=== PATIENT | female | born 1990 | race Two or more races ===

== ENCOUNTER 2018-09-29 17:32 | Emergency (ER) | payer SELFPAY ==
[~2018-09-29] VITALS: Ht 165.1 cm; Wt 63.5 kg
[2018-09-29 17:32] VITALS: BP 128/72
--- NOTE | 2018-09-29 17:32 | NUR ---
ED Nurse Note: Patient PATSY RA #[address] d/t ETOH. Pt denies pain at this time. Pt is A&O x3, V/S stable with no s/s of acute distress noted at this time. Blood and urine sent down to the lab. ERMD at bedside evaluating the pt. Will continue to monitor.
--- NOTE | 2018-09-29 17:43 | Emergency Room Report ---
History of Present Illness General Chief Complaint: Alcohol Intoxication Source: Patient Present Illness HPI Patient was brought in by EMS. Apparently she was acting bizarrely. She was somewhat lethargic and EMS thought the she had been drinking alcohol or ingesting drugs. When asked if she has pain she says that she does. She states that her brain hurts. When asked if she has suicidal ideation (intent to harm her self) she says that she considers taking an overdose. She states she does not have any medications to take. She does admit to depression and anxiety. She is not sure what medication she takes. She does not believe she is . She denies any fevers or chills. She denies nausea, vomiting, diarrhea and dysuria. There is no recent head trauma. She does not admit to alcohol or drugs at this time. She says she just wants to sleep and has not eaten and is hungry and wants to eat. Allergies: Coded Allergies: No Known Allergies (Unverified , 09/29/18) Patient History Past Medical History: see triage record Social History: Reports: alcohol use, drug use Social History Narrative homeless Last Menstrual Period: Unknown Now: No Reviewed Nursing Documentation: PMH: Agreed; PSxH: Agreed Nursing Documentation-PMH Past Medical History: No Stated History Review of Systems All Other Systems: negative except mentioned in HPI Physical Exam Vital Signs Date Time Temp Pulse Resp B/P (MAP) Pulse Ox O2 Delivery O2 Flow Rate FiO2 09/29/18 17:27 98.4 86 15 98 Room Air 09/29/18 17:32 128/72 Sp02 EP Interpretation: reviewed, normal General Appearance: no apparent distress, lethargic, other - Disheveled Head: normocephalic Eyes: bilateral eye PERRL, bilateral eye EOMI, bilateral eye Scleral Injection ENT: moist mucus membranes Neck: supple Respiratory: lungs clear, normal breath sounds Cardiovascular #1: regular rate, rhythm Cardiovascular #2: 2+ radial (R) Gastrointestinal: normal inspection, normal bowel sounds, non tender, no mass, non-distended Genitourinary: no CVA tenderness Musculoskeletal: back normal, normal range of motion Neurologic: alert, oriented - X2 Psychiatric: depressed affect, anxious Suicide Risk Assessment: Suicidal Ideation: Yes Had intent to initiate attempt: No Pt's plan for suicide attempt: Yes Has means to complete attempt: No Skin: warm/dry, other - Disheveled and sunburn Medical Decision Making Diagnostic Impression: Primary Impression: Psychosis Qualified Codes: F29 - Unspecified psychosis not due to a substance or known physiological condition Additional Impressions: Suicidal ideation Lethargy Leukocytosis Qualified Codes: D72.828 - Other elevated white blood cell count ER Course Patient presents with suicidal ideation and substance abuse. Differential includes substance intoxication, alcohol intoxication, electrolyte imbalance, exacerbation of underlying psychiatric illness amongst others. She'll be evaluated with EKG and labs. The patient will receive IV hydration and Ativan. She has a nonfocal neurologic exam and although she is lethargic CT at this time is not indicated. Based on repeated exams this may be considered. EKG without injury. Labs with leukocytosis. CMP and CPK unremarkable. Tox screen negative. Blood alcohol negative. She was resting with occasional bouts of anxiety before Ativan was administered. Patient requires repeat evaluation. With some suicidal ideation, consider PET eval when medically clear. Patient signed out to Dr. Baumann. Laboratory Tests Test 09/29/18 18:05 09/29/18 18:20 White Blood Count 16.3 K/UL (4.8-10.8) H Red Blood Count 4.31 M/UL (4.20-5.40) Hemoglobin 13.4 G/DL (12.0-16.0) Hematocrit 39.0 % (37.0-47.0) Mean Corpuscular Volume 90 FL (80-99) Mean Corpuscular Hemoglobin 31.1 PG (27.0-31.0) H Mean Corpuscular Hemoglobin Concent 34.5 G/DL (32.0-36.0) Red Cell Distribution Width 10.8 % (11.6-14.8) L Platelet Count 410 K/UL (150-450) Mean Platelet Volume 6.2 FL (6.5-10.1) L Neutrophils (%) (Auto) 81.6 % (45.0-75.0) H Lymphocytes (%) (Auto) 11.0 % (20.0-45.0) L Monocytes (%) (Auto) 6.4 % (1.0-10.0) Eosinophils (%) (Auto) 0.6 % (0.0-3.0) Basophils (%) (Auto) 0.3 % (0.0-2.0) Sodium Level 137 MMOL/L (136-145) Potassium Level 3.7 MMOL/L (3.5-5.1) Chloride Level 102 MMOL/L (98-107) Carbon Dioxide Level 25 MMOL/L (21-32) Anion Gap 10 mmol/L (5-15) Blood Urea Nitrogen 18 mg/dL (7-18) Creatinine 0.7 MG/DL (0.55-1.30) Estimate Glomerular Filtration Rate > 60 mL/min (>60) Glucose Level 104 MG/DL (74-106) Calcium Level 8.7 MG/DL (8.5-10.1) Total Bilirubin 0.6 MG/DL (0.2-1.0) Aspartate Amino Transferase (AST) 20 U/L (15-37) Alanine Aminotransferase (ALT) 26 U/L (12-78) Alkaline Phosphatase 45 U/L (46-116) L Total Protein 7.5 G/DL (6.4-8.2) Albumin 3.8 G/DL (3.4-5.0) Globulin 3.7 g/dL Albumin/Globulin Ratio 1.0 (1.0-2.7) Salicylates Level 0.4 ug/mL (2.8-20) L Acetaminophen Level < 2 MCG/ML (10-30) L Serum Alcohol < 3 mg/dL Urine Color Yellow Urine Appearance Clear Urine pH 9 (4.5-8.0) Urine Specific [place] 1.015 (1.005-1.035) Urine Protein 1+ (NEGATIVE) H Urine Glucose (UA) Negative (NEGATIVE) Urine Ketones 1+ (NEGATIVE) H Urine Blood Negative (NEGATIVE) Urine Nitrite Negative (NEGATIVE) Urine Bilirubin Negative (NEGATIVE) Urine Urobilinogen 1 MG/DL (0.0-1.0) H Urine Leukocyte Esterase 1+ (NEGATIVE) H Urine RBC 0 /HPF (0 - 2) Urine WBC 2-4 /HPF (0 - 2) Urine Squamous Epithelial Cells Few /LPF (NONE/OCC) Urine Bacteria Few /HPF (NONE) Urine HCG, Qualitative Negative (NEGATIVE) Urine Opiates Screen Negative (NEGATIVE) Urine Barbiturates Screen Negative (NEGATIVE) Phencyclidine (PCP) Screen Negative (NEGATIVE) Urine Amphetamines Screen Negative (NEGATIVE) Urine Benzodiazepines Screen Negative (NEGATIVE) Urine Cocaine Screen Negative (NEGATIVE) Urine Marijuana (THC) Screen Negative (NEGATIVE) EKG Diagnostic Results Rate: normal Rhythm: NSR ST Segments: no acute changes Rhythm Strip Diag. Results EP Interpretation: yes Rhythm: NSR, no PVC's, no ectopy Last Vital Signs Date Time Temp Pulse Resp B/P (MAP) Pulse Ox O2 Delivery O2 Flow Rate FiO2 09/30/18 12:00 97.6 80 17 125/80 99 Room Air Status: improved Disposition: HOME, SELF-CARE Condition: Improved Scripts Cephalexin* (KEFLEX*) 500 Mg Capsule 500 MG ORAL EVERY 6 HOURS, #28 CAP Prov: Jarrett Pino MD 09/30/18 Chidi Tejada MD September 29, 2018 17:43
[2018-09-29] MEDS ORDERED: LORazepam Inj 2mg/ml 1ml IV ONE (17:45)
[2018-09-29 18:23] LABS: BASOPHILS % (AUTO) 0.3 % (0.0-2.0); EOSINOPHILS % (AUTO) 0.6 % (0.0-3.0); HEMOGLOBIN 13.4 G/DL (12.0-16.0); MEAN CORPUSCULAR VOLUME 90 FL (80-99); MONOCYTES % (AUTO) 6.4 % (1.0-10.0); NEUTROPHILS % (AUTO) 81.6 % (45.0-75.0); PLATELET COUNT 410 K/UL (150-450); RED BLOOD COUNT 4.31 M/UL (4.20-5.40); RED CELL DISTRIBUTION WIDTH 10.8 % (11.6-14.8); WHITE BLOOD COUNT 16.3 K/UL (4.8-10.8)
[2018-09-29 18:32] LABS: APPEARANCE,URINE CLEAR; BILIRUBIN, URINE NEGATIVE (NEGATIVE); GLUCOSE, URINE (UA) NEGATIVE (NEGATIVE); KETONES,URINE 1+ (NEGATIVE); LEUKOCYTE ESTERASE ,URINE 1+ (NEGATIVE); NITRITE,URINE NEGATIVE (NEGATIVE); PH,URINE 9 (4.5-8.0); PROTEIN,URINE 1+ (NEGATIVE); UROBILINOGEN,URINE 1 MG/DL (0.0-1.0)
[2018-09-29 18:36] LABS: ANION GAP 10 mmol/L (5-15); BLOOD UREA NITROGEN 18 mg/dL (7-18); CALCIUM 8.7 MG/DL (8.5-10.1); CARBON DIOXIDE 25 MMOL/L (21-32); CHLORIDE 102 MMOL/L (98-107); CREATININE 0.7 MG/DL (0.55-1.30); POTASSIUM 3.7 MMOL/L (3.5-5.1); SODIUM 137 MMOL/L (136-145)
[2018-09-29 18:42] LABS: COLOR,URINE YELLOW
[2018-09-29 18:44] LABS: ALANINE AMINOTRANSFERASE 26 U/L (12-78); ALBUMIN 3.8 G/DL (3.4-5.0); ALKALINE PHOSPHATASE 45 U/L (46-116); ASPARTATE AMINO TRANSFERASE 20 U/L (15-37); BILIRUBIN,TOTAL 0.6 MG/DL (0.2-1.0)
--- NOTE | 2018-09-29 19:10 | NUR ---
ED Nurse Note: Patient sleeping with no s/s of acute distress. Breathing symmetric and regular rhythm.
--- NOTE | 2018-09-29 19:16 | NUR ---
HAND-OFF: Report given to CALDERON Wilson.
--- NOTE | 2018-09-29 20:16 | NUR ---
ED Nurse Note: Patient sleeping, woke up momentarily, A&Ox3.
--- NOTE | 2018-09-29 21:30 | NUR ---
ED Nurse Note: Patient resting, no complaints of pain.
--- NOTE | 2018-09-29 22:52 | NUR ---
ED Nurse Note: Patient sleeping, no s/s of acute distress.
[2018-09-30 01:00] VITALS: BP 119/67
--- NOTE | 2018-09-30 01:00 | NUR ---
ED Nurse Note: received pt from hallway bed, pt sleeping at this time, arousable to light shaking, vss, resp even and unlabored on RA, no sx distress noted, pt denies SI/HI/VH/AH at this time, will cont monitor.
--- NOTE | 2018-09-30 02:00 | NUR ---
ED Nurse Note: pt c/o pain on iv site, iv removed. ERMD aware.
--- NOTE | 2018-09-30 05:17 | NUR ---
ED Nurse Note: report given to CALDERON CASIANO and endorsed care.
--- NOTE | 2018-09-30 05:20 | NUR ---
ED Nurse Note: RECEIVED PATIENT FROM CALDERON HADLEY. PATIENT SLEEPING COMFORTABLY IN BED WITH NO ACUTE DISTRESS. OFFERED FOOD, DRINK AND TOILETTING; PATIENT REFUSED.
[2018-09-30 06:08] VITALS: BP 108/68
--- NOTE | 2018-09-30 06:12 | NUR ---
ED Nurse Note: IV ACCESS D/C PER PATIENT. PATIENT STATED "I DONT WANT IT ANYMORE" NOTIFIED ERMD. PROVIDED PATIENT WITH FOOD AND WATER.
--- NOTE | 2018-09-30 07:10 | NUR ---
ED Nurse Note: Received report from Conner Foy RN, pt resting on her bed with breakfast consumed. Belongings placed on psych locker #1. Pt is calm and cooperative.
[2018-09-30 08:59] VITALS: BP 112/75
--- NOTE | 2018-09-30 09:22 | NUR ---
ED Nurse Note: Chidi Mata from [facility] at the bed side for evaluation.
[2018-09-30] MEDS ORDERED: CEPHALEXIN500 MG ORAL (11:36)
--- NOTE | 2018-09-30 11:45 | NUR ---
ED Nurse Note: [place] and juices given to patient.
[2018-09-30 12:00] VITALS: BP 125/80
--- NOTE | 2018-09-30 12:00 | NUR ---
ER DISCHARGE NOTE: Patient is cleared to be discharged per ERMD, pt is aox4, on room air, with stable vital signs. pt was given dc and prescription instructions Homeless form signed and resources provided, pt was able to verbalize understanding, pt id band and iv site removed without complications. pt is able to ambulate with steady gait. pt took all belongings.
== END 2018-09-30 12:00 | disposition home or self-care (01) ==
LOC: EDBD 17:32 → EMR 18:00
DX: F29 Unspecified psychosis not due to a substance or known physiological condition (principal); R45.851 Suicidal ideations; R53.83 Other fatigue; D72.828 Other elevated white blood cell count; F41.9 Anxiety disorder, unspecified; F32.9 Major depressive disorder, single episode, unspecified
CPT/HCPCS: 36415; 80053; 80307; 81003; 81025; 85025; 93005; 96361; 96374; 99284; G0480; 80329